=== PATIENT | female | born 1990 | race Caucasian/White ===

== ENCOUNTER → 2018-08-18 | Outpatient (CLI) | payer OTHER ==
[~2018-08-18] MED LIST: IBUP80TA PO; MAPA500T2 PO
--- NOTE | 2018-08-18 17:10 | REP ---
Clinical: Dating and viability Comparison: None . Findings: Examination demonstrates a single live intrauterine in transverse (head to maternal left) presentation. motion is identified by technologist. Placenta is noted anterior and grade grade zero without evidence for placenta previa or abruption. Amniotic fluid volume is normal. Cervix measures 3.9 cm in length and appears closed. No evidence for nuchal cord. Gestational age by LMP 16 weeks 1 day with KATARZYNA 02/01/2019 . Gestational age by current measurements 16 weeks 4 days with KATARZYNA 01/29/2019 . FHR equals 144 beats per minute. Estimated weight 162 grams (65th percentile). Anatomical assessment demonstrates normal structures including cranium, choroid plexus, cavum, diaphragm, stomach, cord insertion, kidneys/bladder, and extremities. Impression: Single live early intrauterine measuring at 16 weeks 4 days gestational age. A complete anatomical assessment should be performed at 19-20 weeks. Electronically Signed by Nicolas Robison MD 08/18/2018 05:02 P
== END ==
LOC: M RAD 16:16
PROVIDERS: ATTEND Nurse Practitioner Family
DX: Z32.01 Encounter for pregnancy test, result positive (principal); Z3A.16 16 weeks gestation of pregnancy